=== PATIENT | female | born 1965 | race Caucasian/White ===

== ENCOUNTER 2018-07-07 20:14 | Emergency (ER) | payer BC ==
[~2018-07-07] VITALS: Ht 167.6 cm; Wt 93.4 kg
[~2018-07-07 20:14] MED LIST: ACET325T38 PO; ACHD5005 PO; AMOX-355 PO; ASP81TEC PO; CHOL500050 PO; CYAN10007 PO; FLUT16SP22 NS; GLIP10TA13 PO; IBUP-30 PO; LANS30CA PO; LEVO150T6 PO; LISI40TA PO; LORA10TA7 PO; LVT.05T PO; METF-380 PO; METF-397 PO; OMEG1CAP74 PO; PANT40TA3 PO; PREN1TAB86 PO; TIMO5DRO8 OP; VERA240C2 PO; VITA1CAP PO; VITA400C60 PO
--- OUTSIDE RECORDS SUMMARY | 2018-07-07 20:23 | XMS REPORT | Continuity of Care Document ---
Author Organization Unknown Address Unknown Allergies There is no data. Medications There is no data. Problems There is no data. Procedures There is no data. Results Test Result Range TSH - 05/21/18 09:47 TSH 0.50 mIU/L NRG Encounters ACCT No. Visit Date/Time Discharge Status Pt. Type Provider Facility Loc./Unit Complaint [id number] 05/21/2018 08:40:00 05/21/2018 23:59:59 [facility] Outpatient ELIJAH BAUTISTA [facility] [id number] 05/21/2018 08:40:00 Document Registration
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
--- NOTE | 2018-07-07 22:44 | NUR ---
C-COLLAR REMOVED BY THE DOCTOR.
[2018-07-07] MEDS ORDERED: KETOROLAC 30 MG/ML VIAL IM ONE (22:45)
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
[2018-07-07 23:11] VITALS: BP 120/81
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
== END 2018-07-07 23:13 | disposition home or self-care (01) ==
LOC: EDUNIT# 20:14 → ER FS 20:15
DX: I71.2 Thoracic aortic aneurysm, without rupture (principal); M54.2 Cervicalgia; J45.909 Unspecified asthma, uncomplicated; I10 Essential (primary) hypertension; G43.909 Migraine, unspecified, not intractable, without status migrainosus; K21.9 Gastro-esophageal reflux disease without esophagitis; K58.9 Irritable bowel syndrome, unspecified; E03.9 Hypothyroidism, unspecified; E11.9 Type 2 diabetes mellitus without complications; Z87.19 Personal history of other diseases of the digestive system; Z79.84 Long term (current) use of oral hypoglycemic drugs; Z90.710 Acquired absence of both cervix and uterus; Y04.2XXA Assault by strike against or bumped into by another person, initial encounter
CPT/HCPCS: 71045; 72125; 72128; 72131; 72170

== ENCOUNTER → 2018-11-15 | Outpatient (CLI) | payer BC ==
[~2018-11-15] MED LIST changes: +CATHETER FLUSH 10 ML SYR IV PRN; +HOLD METFORMIN - RECEIVED CONTRAST 20 ML VIAL IV SCH; +IOHEXOL 350 MG/ML 100 ML (OMNIPAQUE 350) VIAL IV ONE; +NS 100 ML (IVPB) BAG IV ONE
[2018-11-15 11:33] LABS: CREATININE SERUM 1.09 MG/DL (0.60-1.30)
--- NOTE | 2018-11-15 12:52 | Diagnostic Imaging Report ---
PROCEDURE: CT chest with contrast only. TECHNIQUE: Multiple contiguous axial images were obtained through the chest after administration of intravenous contrast. Auto Exposure Controls were utilized during the CT exam to meet ALARA standards for radiation dose reduction. INDICATION: Thoracic aortic aneurysm. FINDINGS: The CT thoracic and lumbar spine exam of 07/07/2018 noted a 4 cm aneurysm of the ascending aorta. On this exam, the aneurysm is again identified and does not appear to have changed significantly. The aneurysm measures 4.0 x 4.0 cm in maximum AP and transverse diameters. There is no sign of a dissection, and the thoracic aorta is of normal caliber. The abdominal aorta where visualized is also unremarkable for an aneurysm. The heart size is within normal limits. There are sparse coronary artery calcifications evident. The pulmonary arteries were not well opacified, but there is no definite defect to suggest a pulmonary embolus. There is no mediastinal or hilar adenopathy. The thyroid gland where visualized is unremarkable. The lungs are clear. There is no evidence for failure, pneumonia, or for a pleural effusion. There is no obvious breast mass. According to our records, the patient has not had a mammogram. If the patient has had a recent (within the last year) mammogram elsewhere, then no further imaging would be necessary. Otherwise, mammography would be recommended for further study. The sections through the upper abdomen show that the gallbladder is surgically absent. The liver is of lower density than usually seen. This does suggest fatty metamorphosis. The bone windows show no sign of a fracture or of a destructive lesion. IMPRESSION: 1. The borderline aneurysmal dilatation of the ascending aorta seen previously is again evident and no different. There is no acute abnormality of the thoracic aorta. 2. There is no acute cardiopulmonary abnormality noted. 3. There is no obvious breast mass. Recommendations as above. Dictated by: Dictated on workstation # [id number]
== END ==
LOC: RAD FS 10:19
PROVIDERS: ATTEND Nurse Practitioner Family
DX: I71.4 Abdominal aortic aneurysm, without rupture (principal)
CPT/HCPCS: 71260; 82565; 84520

== ENCOUNTER → 2020-02-03 | Outpatient (CLI) | payer BC ==
[~2020-02-03] MED LIST changes: -CATHETER FLUSH 10 ML SYR IV PRN; -PANT40TA3 PO; +PANT40TA52 PO
[2020-02-03 10:19] LABS: ALBUMIN 4.3 GM/DL (3.2-4.5); BILIRUBIN,TOTAL 0.5 MG/DL (0.1-1.0); CALCIUM 9.4 MG/DL (8.5-10.1); CREATININE SERUM 1.03 MG/DL (0.60-1.30); POTASSIUM 4.1 MMOL/L (3.6-5.0)
--- NOTE | 2020-02-03 11:31 | Diagnostic Imaging Report ---
PROCEDURE: CT angiography of the chest with contrast. TECHNIQUE: Multiple contiguous axial images were obtained through the chest after uneventful bolus administration of intravenous contrast. 3D reconstructed CTA MIP acquisitions were also performed. Auto Exposure Controls were utilized during the CT exam to meet ALARA standards for radiation dose reduction. INDICATION: Thoracic aortic aneurysm, follow-up. COMPARISON: Correlation is made with prior CT from 11/15/2018. FINDINGS: Ascending thoracic aortic measurements are 3.8 cm AP x 3.7 cm transverse compared with 4.0 cm x 4.0 cm on prior exam. The aortic arch and descending thoracic aorta are normal caliber. There is no dissection. No pericardial or pleural fluid is identified. No pulmonary infiltrates, nodules or masses are seen. Upper abdomen does show some nodularity to the left adrenal gland, stable at 15 mm. IMPRESSION: 1. Stable CT angiogram of the chest with stable ascending thoracic aorta when compared with prior CT from 11/15/2018. 2. Stable left adrenal nodule. Dictated by: Dictated on workstation # [id number]
== END ==
LOC: RAD FS 09:31
PROVIDERS: ATTEND Internal Medicine Cardiovascular Disease
DX: I71.4 Abdominal aortic aneurysm, without rupture (principal); I71.2 Thoracic aortic aneurysm, without rupture; I10 Essential (primary) hypertension; E78.2 Mixed hyperlipidemia; E11.9 Type 2 diabetes mellitus without complications; E27.8 Other specified disorders of adrenal gland
CPT/HCPCS: 36415; 71275; 80053

== ENCOUNTER → 2020-08-24 | Outpatient (CLI) | payer BC ==
[~2020-08-24] MED LIST changes: -HOLD METFORMIN - RECEIVED CONTRAST 20 ML VIAL IV SCH; -IOHEXOL 350 MG/ML 100 ML (OMNIPAQUE 350) VIAL IV ONE; -NS 100 ML (IVPB) BAG IV ONE
== END ==
LOC: CARD 09:00
PROVIDERS: ATTEND Internal Medicine Cardiovascular Disease
DX: I51.7 Cardiomegaly (principal); I71.2 Thoracic aortic aneurysm, without rupture
CPT/HCPCS: 93306

== ENCOUNTER 2021-01-29 06:30 | Outpatient (CLI) | payer BC ==
[~2021-01-29] VITALS: Ht 170.2 cm; Wt 87.7 kg
[2021-01-31] MEDS ORDERED: HYDR25TA4 PO (10:43)
[2021-01-31] MEDS ORDERED: VITA100T8 PO (10:43)
[2021-01-31] MEDS ORDERED: LEVO7.5T11 PO (10:43)
[2021-01-31] MEDS ORDERED: GABA-490 PO (10:43)
[2021-01-31] MEDS ORDERED: ASHW300C PO (10:43)
[2021-01-31] MEDS ORDERED: CALC-694 PO (10:43)
[2021-01-31] MEDS ORDERED: NFBIOT1000 PO (10:43)
[2021-01-31] MEDS ORDERED: GLIP5TAB13 PO (10:43)
[2021-01-31] MEDS ORDERED: ASPI-999 PO (10:43)
[2021-01-31] MEDS ORDERED: LEVO137T2 PO (10:43)
[2021-01-31] MEDS ORDERED: UBID100C17 PO (10:43)
[2021-01-31] MEDS ORDERED: ROSU10TA28 PO (10:43)
[2021-01-31] MEDS ORDERED: LORA10TA7 PO (10:43)
[2021-01-31] MEDS ORDERED: LISI20TA26 PO (10:43)
[2021-01-31] MEDS ORDERED: MAGN500T PO (10:46)
[2021-01-31] MEDS ORDERED: POTA99TA26 PO (10:46)
[2021-01-31] MEDS ORDERED: OMEG92TA PO (10:46)
[2021-01-31] MEDS ORDERED: GARL500C2 PO (10:46)
== END 2021-01-31 10:56 | disposition home or self-care (01) ==
LOC: PREOP 06:30
PROVIDERS: ATTEND Obstetrics & Gynecology
DX: Z01.818 Encounter for other preprocedural examination (principal)

== ENCOUNTER 2021-02-05 06:16 | Day surgery (SDC) | payer BC ==
[~2021-02-05] VITALS: Ht 170.2 cm; Wt 87.7 kg
[2021-02-05] VITALS (13 sets, daily range): BP systolic 96–133; BP diastolic 54–86
[~2021-02-05 06:16] MED LIST changes: +ASHW300C PO; +ASPI-999 PO; +CALC-694 PO; +GABA-490 PO; +GARL500C2 PO; +GLIP5TAB13 PO; +HYDR25TA4 PO; +LEVO137T2 PO; +LEVO7.5T11 PO; +LISI20TA26 PO; +MAGN500T PO; +NFBIOT1000 PO; +OMEG92TA PO; +POTA99TA26 PO; +ROSU10TA28 PO; +UBID100C17 PO; +VITA100T8 PO
[2021-02-05] MEDS ORDERED: ceFAZolin 2 GM IV Premixed 50 ML IV ONE (06:30)
[2021-02-05] MEDS: LACTATED RINGERS 1,000 ML IV PRN ×3 (06:57→18:00)
[2021-02-05] MEDS ORDERED: VASOPRESSIN INJECTION 20 UNIT/ML VIAL ONE (07:04)
[2021-02-05] MEDS ORDERED: NS (IVPB) 100 ML ONE (07:04)
[2021-02-05] MEDS ORDERED: ESTRADIOL VAGINAL CREAM 42.5 GM (ESTRACE) VG ONE (07:04)
[2021-02-05] MEDS ORDERED: SEVOFLURANE (ULTANE) 15 ML INHAL SOLN ONE ×3 (07:23→10:48)
[2021-02-05] MEDS ORDERED: LIDOCAINE PF 2% 5 ML (XYLOCAINE) VIAL ONE (07:23)
[2021-02-05] MEDS ORDERED: proPOfol 200 MG/20 ML (DIPRIVAN) VIAL IV ONE (07:23)
[2021-02-05] MEDS ORDERED: ONDANSETRON 4 MG/2 ML (SDV) Z0FRAN ONE (07:23)
[2021-02-05] MEDS ORDERED: fentaNYL INJ 100 MCG/2 ML AMP ONE (07:23)
[2021-02-05] MEDS ORDERED: MIDAZOLAM 2 MG/2 ML (VERSED) VIAL ONE (07:24)
--- NOTE | 2021-02-05 07:51 | History & Physical-Surgical ---
HPO-Surgical History of Present Illness Chief Complaint: cystocele Diagnosis/Surgical Indication: cystocele, mixed incontience Procedure: ant colporrahaphy, possible pubovaginal sling Date of Surgery: Feb 05, 2021 Weight (Pounds): 206 Weight (Ounces): 2.0 Height (Feet): 5 Height (Inches): 6.00 Allergies and Home Medications Allergies Coded Allergies: No Known Drug Allergies (Unverified , 01/04/16) Patient Home Medication List Home Medication List Reviewed: Yes Ashwagandha Root Extract (Ashwagandha Root Extract) Unknown Strength Capsule, 1,300 MG PO DAILY, (Reported) Entered as Reported by: DANNIE CHO on 01/31/21 1043 Aspirin (Aspirin) 81 Mg Tab.chew, 81 MG PO DAILY, (Reported) Entered as Reported by: DANNIE CHO on 01/31/21 1043 Biotin (Biotin) Unknown Strength Tablet, 1 TAB PO DAILY, (Reported) Entered as Reported by: DANNIE CHO on 01/31/21 1043 Calcium Carbonate/Vitamin D3 (Calcium 600 + Vit D Caplet) 1 Each Tablet, 1 EACH PO DAILY, (Reported) Entered as Reported by: DANNIE CHO on 01/31/21 1043 Gabapentin (Gabapentin) 400 Mg Capsule, 400 MG PO DAILY, (Reported) Entered as Reported by: DANNIE CHO on 01/31/21 1043 Garlic (Garlic) 500 Mg Capsule, 500 MG PO DAILY, (Reported) Entered as Reported by: DANNIE CHO on 01/31/21 1046 Glipizide (Glipizide) 5 Mg Tablet, 10 MG PO DAILY, (Reported) Entered as Reported by: DANNIE CHO on 01/31/21 1043 Hydrochlorothiazide (Hydrochlorothiazide) 25 Mg Tablet, 25 MG PO DAILY, (Reported) Entered as Reported by: DANNIE CHO on 01/31/21 1043 Levomefolate Calcium (Elfolate) 7.5 Mg Tablet, 7.5 MG PO DAILY, (Reported) Entered as Reported by: DANNIE CHO on 01/31/21 1043 Levothyroxine Sodium (Levothyroxine Sodium) 137 Mcg Tablet, 137 MCG PO DAILY, (Reported) Entered as Reported by: DANNIE CHO on 01/31/21 1043 Lisinopril (Lisinopril) 20 Mg Tablet, 20 MG PO DAILY, (Reported) Entered as Reported by: DANNIE CHO on 01/31/21 104 Loratadine (Loratadine) 10 Mg Tablet, 10 MG PO DAILY, (Reported) Entered as Reported by: DANNIE CHO on 01/31/21 104 Magnesium Oxide (Magnesium Oxide) 500 Mg Tablet, 1,000 MG PO DAILY, (Reported) Entered as Reported by: DANNIE CHO on 01/31/21 104 Metformin HCl (Metformin HCl) 500 Mg Tablet, 1,000 MG PO BID, (Reported) Entered as Reported by: CALI MELGAR on 01/04/16 164 [place] 3,6,9 Combination No.7 ([place]ha) 92 Mg Tab.chew, 1 TAB PO DAILY, (Reported) Entered as Reported by: DANNIE CHO on 01/31/21 104 Pantoprazole Sodium (Pantoprazole Sodium) 40 Mg Tablet.dr, 40 MG PO DAILY, (Reported) Entered as Reported by: CAIL MELGAR on 01/04/16 164 Potassium Gluconate (Potassium) 99 Mg Tablet, 99 MG PO DAILY, (Reported) Entered as Reported by: DANNIE CHO on 01/31/21 104 Rosuvastatin Calcium (Rosuvastatin Calcium) 10 Mg Tablet, 10 MG PO HS, (Reported) Entered as Reported by: DANNIE HCO on 01/31/21 1043 Ubidecarenone (Coq-10) 100 Mg Capsule, 100 MG PO DAILY, (Reported) Entered as Reported by: DANNIE CHO on 01/31/21 104 Vitamin B Complex (Vitamin B Complex) 1 Each Capsule, 1 EACH PO DAILY, (Reported) Entered as Reported by: CALI MELGAR on 01/04/16 164 Vitamin E Mixed (Vitamin E) 100 Unit Tablet, 100 UNIT PO DAILY, (Reported) Entered as Reported by: DANNIE CHO on 01/31/21 1043 Discontinued Medications Acetaminophen (Tylenol) 325 Mg Tablet, 650 MG PO DAILY, (Reported) Discontinued Reason: No Longer Taking Entered as Reported by: CALI MELGAR on 01/04/16 1641 Amoxicillin/Potassium Clav (Augmentin 500-125 Tablet) 1 Each Tablet, 1 EACH PO BID Discontinued Reason: No Longer Taking Prescribed by: SANDEE MORALEZ on 01/11/16 1508 Cholecalciferol (Vitamin D3) (Vitamin D) 5,000 Unit Capsule, 5,000 UNIT PO DAILY, (Reported) Discontinued Reason: No Longer Taking Entered as Reported by: CALI MELGAR on 01/04/16 1641 Glipizide (Glipizide) 10 Mg Tablet, 10 MG PO DAILY, (Reported) Discontinued Reason: Prescription changed Entered as Reported by: CALI MELGAR on 01/04/16 164 Hydrocodone Bit/Acetaminophen (Lortab 5 Mg Tablet) 1 Each Tablet, 1-2 EACH PO Q4H PRN for PAIN Discontinued Reason: No Longer Taking Prescribed by: SANDEE MORALEZ on 01/11/16 1508 Levothyroxine Sodium (Levothyroxine Sodium) 150 Mcg Tablet, 150 MCG PO DAILY, (Reported) Discontinued Reason: Prescription changed Entered as Reported by: CALI MELGAR on 01/04/16 1539 Lisinopril (Lisinopril) 40 Mg Tablet, 50 MG PO DAILY, (Reported) Discontinued Reason: Prescription changed Entered as Reported by: MARCUS SIERRA on 11/05/09 0806 Vit W-Ca,Fe,FA(<1 mg) ( Vitamins) 1 Each Tablet, 1 EACH PO DAILY, (Reported) Discontinued Reason: No Longer Taking Entered as Reported by: CALI MELGAR on 01/04/16 1641 Timolol Maleate (Timoptic) 5 Ml Drops, 1 DROP OP DAILY, (Reported) Discontinued Reason: No Longer Taking Entered as Reported by: CALI MELGAR on 01/04/16 1642 Vitamin E Acetate (Vitamin E) 400 Unit Capsule, 400 UNIT PO DAILY, (Reported) Discontinued Reason: Prescription changed Entered as Reported by: CALI MELGAR on 01/04/16 1641 Past Hvxyjka-Lhfaic-Otgtaz Hx Patient Social History Marrital Status: Number of Children: 4 Number of living children: 4 Employed/Student: employed Smoking Status: Never a Smoker Recent Hopitalizations: No Immunizations Up To Date Date of Influenza Vaccine: Dec 03, 2020 Seasonal Allergies Seasonal Allergies: Yes Surgeries Yes Bladder Surgery, Eye Surgery, Gallbladder, Hysterectomy, Tubal Ligation Respiratory Yes Cardiovascular Yes Aneurysm, Hypertension Neurological Yes Headaches /Migraines Reproductive System : No Hx : 4 Hx Para: 4 Hx Reproductive Disorders: Yes (RECTOCELE) Sexually Transmitted Disease: No HIV/AIDS: No [employer]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 Genitourinary Yes (cystocele) Gastrointestinal Yes Gastroesophageal Reflux, Chronic Constipation, Irritable Bowel Musculoskeletal Yes Fibromyalgia Endocrine History of Endocrine Disorders: Yes Endocrine Disorders: Hypothyroidsim, Diabetes, Non-Insulin dep HEENT History of HEENT Disorders: Yes (cataract removed ) Loss of Vision: Bilateral Hearing Impairment: Denies Cancer No Psychosocial History of Psychiatric Problem: No Integumentary History of Skin or Integumenta: No Blood Transfusions History of Blood Disorders: Yes (HX OF ANEMIA) Adverse Reaction to a Blood Tr: No (N/A) Reviewed Nursing Assessment Reviewed/Agree w Nursing PMH: Yes Family Medical History Significant Family History: Heart Disease, CVA, Diabetes, Hypertension Exam Vital Signs Vital Signs 02/05/21 06:25 Temp 36.0 Pulse 81 Resp 18 B/P (MAP) 126/77 (93) Pulse Ox 97 O2 Delivery Room Air Capillary Refill : General Appearance: Alert HEENT: Atraumatic Respiratory: Clear to Auscultation Cardiovascular: Regular Rate Assessment/Plan Assessment and Plan Cystocele and mixed incontinence Plan - plan anterior colporrhaphy with possible Sharonda plication on 02/05/2021 Risk of bleeding, infection, injury to bowel, bladder and ureter has been discussed with patient. She will be NPO after midnight. Will use prophylactic antibiotics and SCDs. Discussed the risk of bladder injury and post operative retention is great with history of previous surgery. Discussed that she may want to consider a pubovaginal sling but she says she does not want mesh. Will reconsider and discuss again preoperatively. Discussed she may have to self cath or wear a catheter home for a few days if in jury or retention. Discussed that ovary does not need removed in the setting of normal labs, no mass, etc. Admission Diagnosis Admission Status: Observation (23 hour) MICKI IVAN DO Feb 05, 2021 07:51
[2021-02-05] MEDS ORDERED: KETOROLAC 30 MG/ML VIAL ONE (10:46)
--- NOTE | 2021-02-05 10:50 | Operative Report ---
Operative Report Date of Procedure/Surgery Feb 05, 2021 Surgeon (s) MICKI IVAN DO Business Intelligence Manager (s): NA Post-Operative Diagnosis cystocele Procedure Performed anterior colporrhaphy Description of Procedure Anesthesia Type: General (LMA) Estimated blood loss (mL): minimal Specimen(s) collected/removed none Packing: vaginal with estrogen cream Description of the Procedure With informed consent the patient was taken to the operating room where general anesthesia was found to be adequate. She was prepped and draped in the usual sterile fashion in the dorsolithotomy position. A mayfield catheter was placed in the bladder. There was a 2nd degree laceration noted. A weighted speculum was placed in the vagina and the anterior vaginal epithelium was injected with dilute vasopressin and a midline incision was made with the scalpel. The vaginal epithelium was dissected off the pubovesical fascia laterally to the white line. I then plicated the anterior in the midline, reducing the cystocele with interrupted figure of eight stitches of 2-0 Vicryl. I then did a gricelda plication under the urethra. I then trimmed the excess vaginal epithelium and closed the incision with a running stitch of 2-0 Vicryl. I then packed the vagina with estrace cream and vaginal packing. The patient was awakened and taken to the recovery room in stable condition. Findings of the Procedure 2+ cystocele, small enterocele well supported urethra Allergies and Home Medications Allergies Coded Allergies: No Known Drug Allergies (Unverified , 01/04/16) Patient Home Medication List Home Medication List Reviewed: Yes Acetaminophen (Acetaminophen) 500 Mg Tablet, 1,000 MG PO Q8HR Prescribed by: MICKI IVAN on 02/06/21714 Aspirin (Aspirin EC) 325 Mg Tablet.dr, 325 MG PO HS, (Reported) Entered as Reported by: WES WHITFIELD on 02/05/21 1320 Last Action: Continued Benzocaine/Benzethon Cl (Dermoplast First Aid [place]) 78 Gm Aerosol, 78 GM TP PRN Prescribed by: MICKI IVAN on 02/06/21 07 Docusate Sodium (Colace) 100 Mg Capsule, 100 MG PO DAILY Prescribed by: MICKI IVAN on 02/06/21 0715 Dorzolamide HCl/Timolol Maleat (Cosopt Eye Drops) 10 Ml Drops, 1 DROP OS BID, (Reported) Entered as Reported by: WES WHITFIELD on 02/05/211319 Last Action: Continued Flaxseed Oil (Flaxseed Oil) 1,000 Mg Capsule, 1,000 MG PO DAILY, (Reported) Entered as Reported by: WES WHITFIELD on 02/05/211319 Last Action: Reviewed Gabapentin (Gabapentin) 400 Mg Capsule, 400 MG PO HS, (Reported) Entered as Reported by: DANNIE CHO on 01/31/21 104 Last Action: Continued Glipizide (Glipizide) 5 Mg Tablet, 5 MG PO BIDAC, (Reported) Entered as Reported by: DANNIE CHO on 01/31/211042 Last Action: Continued Guaifenesin (Guaifenesin) 400 Mg Tablet, 400 MG PO HS PRN for CONGESTION, (Repor clifton) Entered as Reported by: WES WHITFIELD on 02/05/211320 Last Action: Reviewed Hydrochlorothiazide (Hydrochlorothiazide) 25 Mg Tablet, 25 MG PO DAILY, (Reported) Entered as Reported by: DANNIE CHO on 01/31/21 104 Last Action: Continued Ibuprofen (Ibu) 600 Mg Tablet, 600 MG PO Q6HR Prescribed by: MICKI IVAN on 02/06/21 0715 Levomefolate Calcium (Elfolate) 7.5 Mg Tablet, 7.5 MG PO 1200, (Reported) Entered as Reported by: WES WHITFIELD on 02/05/211319 Last Action: Reviewed Levothyroxine Sodium (Levothyroxine Sodium) 125 Mcg Tablet, 125 MCG PO DAILY, (Reported) Entered as Reported by: WES WHITFIELD on 02/05/211319 Last Action: Continued Lisinopril (Lisinopril) 20 Mg Tablet, 20 MG PO HS, (Reported) Entered as Reported by: DANNIE CHO on 01/31/211042 Last Action: Continued Loratadine (Loratadine) 10 Mg Tablet, 10 MG PO DAILY, (Reported) Entered as Reported by: DANNIE CHO on 01/31/211042 Last Action: Continued Magnesium Oxide (Magnesium Oxide) 250 Mg Tablet, 250 MG PO BID, (Reported) Entered as Reported by: WES WHITFIELD on 02/05/211319 Last Action: Reviewed Metformin HCl (Metformin HCl) 500 Mg Tablet, 1,000 MG PO BID, (Reported) Entered as Reported by: CALI MELGAR on 01/04/161640 Last Action: Continued Multivitamin/Iron/Folic Acid (Multivitamin with Iron Tablet) 1 Each Tablet, 1 EACH PO DAILY, (Reported) Entered as Reported by: WES WHITFIELD on 02/05/211319 Last Action: Continued [place]-3S/Dha/Epa/Fish Oil (Fish Oil [place]-3 Softgel) 1 Each Capsule.dr, 2 EACH PO BID, (Reported) Entered as Reported by: WES WHITFIELD on 02/05/211319 Last Action: Reviewed Ondansetron (Ondansetron Odt) 4 Mg Tab.rapdis, 4 MG PO Q6H PRN for NAUSEA/VOMITING-1ST LINE, (Reported) Entered as Reported by: WES WHITFIELD on 02/05/211325 Last Action: Continued Oxycodone Hcl (Oxyir Tablet) 5 Mg Tab, 5 MG PO Q4HR PRN for PAIN-SEE DOSE INSTRUCTIONS Prescribed by: MICKI IVAN on 02/06/21 0716 Pantoprazole Sodium (Pantoprazole Sodium) 40 Mg Tablet.dr, 40 MG PO HS, (Reported) Entered as Reported by: CALI MELGAR on 01/04/161640 Last Action: Continued Potassium Gluconate (Potassium) 99 Mg Tablet, 99 MG PO DAILY, (Reported) Entered as Reported by: DANNIE CHO on 01/31/21 1046 Last Action: Reviewed Turmeric/Turmeric Root Extract (Turmeric 450-50 mg Capsule) Unknown Strength Capsule, Unknown Dose PO BID, (Reported) Entered as Reported by: WES WHITFIELD on 02/05/211319 Last Action: Reviewed [Ashwagandha] Unknown Strength CAKE, 2 EA PO 1200, (Reported) Entered as Reported by: WES WHITFIELD on 02/05/211319 Last Action: Reviewed [Cinnamon Bark] 1,000 CAP, 2,000 MG PO TIDWM, (Reported) Entered as Reported by: WES WHITFIELD on 02/05/211319 Last Action: Reviewed MICKI IVAN DO Feb 05, 2021 10:50
--- NOTE | 2021-02-05 10:58 | Anesthesia-General Post-Op ---
General Patient Condition Mental Status/LOC: Same as Preop Cardiovascular: Satisfactory Nausea/Vomiting: Absent Respiratory: Satisfactory Pain: Controlled Complications: Absent Post Op Complications Complications None Follow Up Care/Instructions Patient Instructions None needed. Anesthesia/Patient Condition Patient Condition Patient is doing well, no complaints, stable vital signs, no apparent adverse anesthesia problems. No complications reported per nursing. JENSEN ZUNIGA CRNA Feb 05, 2021 10:58
[2021-02-05] MEDS ORDERED: BENZOCAINE/MENTHOL (DERMOPLAST) 56 ML CAN TP PRN (11:00)
[2021-02-05] MEDS ORDERED: MEPERIDINE (DEMEROL) INJ 50 MG/ML IVP ONE (11:00)
[2021-02-05] MEDS ORDERED: morphine INJ 10 MG/ML 1ML (SYR OR VIAL) IVP ONE (11:00)
[2021-02-05] MEDS ORDERED: NALOXONE 0.4 MG/ML 1 ML (NARCAN) VIAL IV PRN (11:00)
[2021-02-05] MEDS ORDERED: PATIENT MAY USE OWN MEDS, ALL MC SCH (11:00)
[2021-02-05] MEDS ORDERED: ONDANSETRON 4 MG/2 ML (SDV) Z0FRAN IVP PRN (11:00)
[2021-02-05] MEDS ORDERED: morphine INJ 4 MG/ML 1 ML (VIAL/SYRINGE) IV PRN (11:00)
[2021-02-05] MEDS ORDERED: METOCLOPRAMIDE INJ 10 MG/2 ML (REGLAN) IV PRN (11:00)
[2021-02-05] MEDS: LACTATED RINGERS 1,000 ML IV SCH ×2 (11:42→20:11)
[2021-02-05] MEDS ORDERED: LEVO7.5T11 PO (13:20)
[2021-02-05] MEDS ORDERED: CINNAMON BARK PO (13:20)
[2021-02-05] MEDS ORDERED: LEVO125T6 PO (13:20)
[2021-02-05] MEDS ORDERED: OMEG-154 PO (13:20)
[2021-02-05] MEDS ORDERED: MULT-1076 PO (13:20)
[2021-02-05] MEDS ORDERED: MAGN250T35 PO (13:20)
[2021-02-05] MEDS ORDERED: TURM500C7 PO (13:20)
[2021-02-05] MEDS ORDERED: ASPI325T32 PO (13:20)
[2021-02-05] MEDS ORDERED: ASHWAGANDHA PO (13:20)
[2021-02-05] MEDS ORDERED: DORZ10DR22 OS (13:20)
[2021-02-05] MEDS ORDERED: FLAX10004 PO (13:20)
[2021-02-05] MEDS ORDERED: GUAI400T86 PO (13:21)
[2021-02-05] MEDS ORDERED: ONDA4TAB11 PO (13:26)
[2021-02-05] MEDS: ACETAMINOPHEN 500 MG TAB (TYLENOL) PO SCH ×2 (14:00→22:00)
[2021-02-05] MEDS ORDERED: ONDANSETRON 4 MG (ZOFRAN) ORAL DISSOLVE TAB PO PRN (14:15)
[2021-02-05] MEDS: KETOROLAC 30 MG/ML VIAL IV SCH ×2 (17:59→20:10)
[2021-02-05] MEDS: glipiZIDE 5 MG (GLUCOTROL) TAB PO SCH (18:02)
[2021-02-05] MEDS: DORZOLAMIDE/TIMOLOL (COSOPT) 2-0.68% 10 ML BTL OS SCH (18:04)
[2021-02-05] MEDS: metFORMIN 500 MG (GLUCOPHAGE) TAB PO SCH (20:02)
[2021-02-05] MEDS: DOCUSATE SODIUM 100 MG (COLACE) CAP PO SCH (20:09)
[2021-02-05] MEDS ORDERED: ASPIRIN E.C. 325 MG (ECOTRIN) TABLET PO SCH (21:00)
[2021-02-05] MEDS ORDERED: PANTOPRAZOLE 40 MG (PROTONIX) TAB PO SCH (21:00)
[2021-02-05] MEDS ORDERED: lisINopril 20 MG (PRINIVIL) TABLET PO SCH (21:00)
[2021-02-05] MEDS ORDERED: GABAPENTIN 400 MG (NEURONTIN) CAP PO SCH (21:00)
[2021-02-06 00:21] VITALS: BP 119/66
[2021-02-06] MEDS: LACTATED RINGERS 1,000 ML IV SCH ×2 (02:03→11:14)
[2021-02-06 05:00] VITALS: BP 136/77
[2021-02-06] MEDS: glipiZIDE 5 MG (GLUCOTROL) TAB PO SCH (05:05)
[2021-02-06] MEDS: ACETAMINOPHEN 500 MG TAB (TYLENOL) PO SCH (06:23)
[2021-02-06] MEDS: KETOROLAC 30 MG/ML VIAL IV SCH ×2 (06:23)
[2021-02-06] MEDS ORDERED: LEVOTHYROXINE 125 MCG (LEVOTHROID) TABLET PO SCH (06:30)
[2021-02-06] MEDS ORDERED: ACET-93 PO (07:15)
[2021-02-06] MEDS ORDERED: IBUP-844 PO (07:15)
[2021-02-06] MEDS ORDERED: DOCU-143 PO (07:15)
[2021-02-06] MEDS ORDERED: OXC5T PO (07:15)
--- NOTE | 2021-02-06 07:20 | Discharge Inst-Women's Service ---
Discharge Inst-Women's Serv Depart Medication/Instructions New, Converted or Re-Newed RX: Transmitted to Pharmacy Instructions expect light bleeding/spotting for 7-10 days may use sitz baths may use dermaplast spray Final Diagnosis cystocele enterocele diabetes hypertension Problems Reviewed?: Yes Consults/Follow Up Additional Follow Up: Yes (1-2 weeks with [facility] and 6 weeks Leo) Activity Activity: Activity as Tolerated Driving Instructions: No Driving for 1 Week NO SMOKING: NO SMOKING Nothing Inside Vagina: No Douching, No [employer] (until cleared by physicion), No Tampons Diet Discharge Diet: No Restrictions Symptoms to Report to : Swelling Increased, Bleeding Excessive, Pain Increased, Fever Over 101 Degrees F, Vaginal Bleeding Increase, Vaginal Discharge Foul For Any Problems or Questions: Contact Your Physician Skin/Wound Care Bathing Instructions: Shower (ok to do sitz baths) MICKI IVAN DO Feb 06, 2021 07:20
[2021-02-06] MEDS ORDERED: [UNRECOGNIZED DRUG - CODE] TP (07:21)
[2021-02-06] MEDS ORDERED: MULTIVIT W/MINERALS TAB (THERAGRAN M) PO SCH (08:00)
[2021-02-06 08:36] VITALS: BP 128/74
[2021-02-06] MEDS: metFORMIN 500 MG (GLUCOPHAGE) TAB PO SCH (08:47)
[2021-02-06] MEDS: DORZOLAMIDE/TIMOLOL (COSOPT) 2-0.68% 10 ML BTL OS SCH (08:48)
[2021-02-06] MEDS ORDERED: LORATADINE (CLARITIN) 10 MG TAB PO SCH (09:00)
[2021-02-06] MEDS: DOCUSATE SODIUM 100 MG (COLACE) CAP PO SCH (09:01)
[2021-02-06] MEDS ORDERED: CALCIUM CARBONATE 500 MG (TUMS) TAB.CHEW PO ONE (11:00)
[2021-02-06 11:38] VITALS: BP 123/68
[2021-02-06] MEDS ORDERED: IBUPROFEN 600 MG (MOTRIN) TAB PO SCH (12:00)
== END 2021-02-06 12:20 | disposition home or self-care (01) ==
LOC: SDC 06:16 → WS 12:09 → SDC 02-06 12:20
PROVIDERS: ATTEND Obstetrics & Gynecology
DX: N81.10 Cystocele, unspecified (principal); N39.46 Mixed incontinence; N81.5 Vaginal enterocele; K21.9 Gastro-esophageal reflux disease without esophagitis; E66.9 Obesity, unspecified; M79.7 Fibromyalgia; E11.22 Type 2 diabetes mellitus with diabetic chronic kidney disease; I12.9 Hypertensive chronic kidney disease with stage 1 through stage 4 chronic kidney disease, or unspecified chronic kidney disease; N18.30 Chronic kidney disease, stage 3 unspecified; E78.2 Mixed hyperlipidemia; E11.42 Type 2 diabetes mellitus with diabetic polyneuropathy; I71.2 Thoracic aortic aneurysm, without rupture; K59.09 Other constipation; E03.9 Hypothyroidism, unspecified; Z79.899 Other long term (current) drug therapy; Z79.82 Long term (current) use of aspirin; Z79.1 Long term (current) use of non-steroidal anti-inflammatories (NSAID); Z79.84 Long term (current) use of oral hypoglycemic drugs; Z68.30 Body mass index [BMI] 30.0-30.9, adult; Z98.51 Tubal ligation status
CPT/HCPCS: 82947; 87081; 94664

== ENCOUNTER → 2022-01-24 | Outpatient (CLI) | payer BC ==
[~2022-01-24] MED LIST changes: +ACET-93 PO; +ASHWAGANDHA PO; +ASPI325T32 PO; +CATHETER FLUSH 10 ML SYR IV PRN; +CINNAMON BARK PO; +DOCU-143 PO; +DORZ10DR22 OS; +FLAX10004 PO; +GUAI400T86 PO; +HOLD METFORMIN - RECEIVED CONTRAST 20 ML VIAL IV SCH; +IBUP-844 PO; +IOHEXOL 350 MG/ML 100 ML (OMNIPAQUE 350) VIAL IV ONE; +LEVO125T6 PO; +MAGN250T35 PO; +MULT-1076 PO; +NS 100 ML (IVPB) BAG IV ONE; +OMEG-154 PO; +ONDA4TAB11 PO; +OXC5T PO; +TURM500C7 PO; +[UNRECOGNIZED DRUG - CODE] TP
[2022-01-24 15:26] LABS: CREATININE SERUM 1.13 MG/DL (0.60-1.30); POTASSIUM 3.7 MMOL/L (3.6-5.0)
[2022-01-24 15:27] LABS: CALCIUM 9.2 MG/DL (8.5-10.1)
--- NOTE | 2022-01-24 17:06 | Diagnostic Imaging Report ---
EXAMINATION: CT angiography of the chest. TECHNIQUE: Contrast enhanced thin section helical images were obtained through the chest with intravenous contrast timed for the optimal opacification of the arterial structures per CTA protocol. Post-processing, reconstructions and interpretation of angiographic images of the vessels was performed. 3D MIP reconstructions were performed and reviewed. All CT scans use one or more of the following dose optimizing techniques: automated exposure control, MA and/or KvP adjustment based on a patient size and exam type, or iterative reconstruction. HISTORY: Aortic aneurysm COMPARISON: 02/03/2020 FINDINGS: Ascending aorta measures 3.8 x 3.7 cm, previously 3.8 x 3.7 cm. The root is normal in caliber. Arch is normal in caliber. Descending aorta is normal in caliber. No central pulmonary embolism. No dissection. There is no edema or pneumonia. No pleural effusion. No pneumothorax. No suspicious nodules. There is no axillary or supraclavicular lymphadenopathy. There is no mediastinal lymphadenopathy. Heart size is normal. There are no coronary artery calcifications. No pericardial effusion. Aorta is normal in caliber. Limited views of the upper abdomen show changes of cholecystectomy. There is an unchanged left adrenal nodule, likely benign given long-term stability. There are no suspicious osseus lesions. IMPRESSION: 1. Stable caliber of the ascending aorta measuring 3.8 x 3.7 cm. Dictated by: Dictated on workstation # [id number]
== END ==
LOC: RAD FS 14:16
PROVIDERS: ATTEND Internal Medicine Cardiovascular Disease
DX: I71.21 Aneurysm of the ascending aorta, without rupture (principal)
CPT/HCPCS: 36415; 71275; 80048; Q9967

== ENCOUNTER 2022-07-26 20:37 | Emergency (ER) | payer BC ==
[~2022-07-26] VITALS: Ht 170.2 cm; Wt 90.7 kg
[~2022-07-26 20:37] MED LIST changes: -CATHETER FLUSH 10 ML SYR IV PRN; -DORZ10DR22 OS; +DORZ10DR40 OS; -HOLD METFORMIN - RECEIVED CONTRAST 20 ML VIAL IV SCH; -IOHEXOL 350 MG/ML 100 ML (OMNIPAQUE 350) VIAL IV ONE; -NS 100 ML (IVPB) BAG IV ONE
[2022-07-26] MEDS ORDERED: NS IV 1000 ML 1,000 ML IV STA (20:55)
--- NOTE | 2022-07-26 20:59 | ED General ---
General Stated Complaint: LOW ENERGY|SWEATING|VOMITING|CHEST PAIN|SOB Source of Information: Patient, Family Exam Limitations: No Limitations History of Present Illness Date Seen by Provider: Jul 26, 2022 Time Seen by Provider: 20:43 Initial Comments 57-year-old female with past medical history most notable for diabetes and hypertension coming in with her spouse due to just not feeling well. She has been indoors all day at a family reunion. She started having intermittent headaches today which are not unusual for her, denies headache at this time. Started having chest pain roughly 3 hours ago which is mild, constant and associated with nonbloody nonbilious vomiting. The thinks she ate bad tacos. She denies any cardiac stents and denies any prior history of DVT or PE. Denies any recent surgery, no hemoptysis, diarrhea, dysuria, fever, focal weak ness or numbness, or any other concerns. Allergies and Home Medications Allergies Coded Allergies: No Known Drug Allergies (Unverified , 01/04/16) Patient Home Medication List Home Medication List Reviewed: Yes Acetaminophen (Acetaminophen) 500 Mg Tablet, 1,000 MG PO Q8HR Prescribed by: MICKI IVAN on 02/06/21 0715 Aspirin (Aspirin EC) 325 Mg Tablet.dr, 325 MG PO HS, (Reported) Entered as Reported by: WES WHITFIELD on 02/05/21 1320 Benzocaine/Benzethon Cl (Dermoplast First Aid [place]) 78 Gm Aerosol, 78 GM TP PRN Prescribed by: MICKI IVAN on 02/06/21 07 Docusate Sodium (Colace) 100 Mg Capsule, 100 MG PO DAILY Prescribed by: MICKI IVAN on 02/06/21 0715 Dorzolamide HCl/Timolol Maleat (Cosopt Eye Drops) 10 Ml Drops, 1 DROP OS BID, (Reported) Entered as Reported by: WES WHITFIELD on 02/05/21 1320 Flaxseed Oil (Flaxseed Oil) 1,000 Mg Capsule, 1,000 MG PO DAILY, (Reported) Entered as Reported by: WES WHITFIELD on 02/05/21 1320 Gabapentin (Gabapentin) 400 Mg Capsule, 400 MG PO HS, (Reported) Entered as Reported by: DANNIE CHO on 01/31/21 1043 Glipizide (Glipizide) 5 Mg Tablet, 5 MG PO BIDAC, (Reported) Entered as Reported by: DANNIE CHO on 01/31/21 1043 Guaifenesin (Guaifenesin) 400 Mg Tablet, 400 MG PO HS PRN for CONGESTION, ( Reported) Entered as Reported by: WES WHITFIELD on 02/05/21 1321 Hydrochlorothiazide (Hydrochlorothiazide) 25 Mg Tablet, 25 MG PO DAILY, (Reported) Entered as Reported by: DANNIE CHO on 01/31/21 1043 Ibuprofen (Ibu) 600 Mg Tablet, 600 MG PO Q6HR Prescribed by: MICKI IVAN on 02/06/21 0715 Levomefolate Calcium (Elfolate) 7.5 Mg Tablet, 7.5 MG PO 1200, (Reported) Entered as Reported by: WES WHITFIELD on 02/05/21 1320 Levothyroxine Sodium (Levothyroxine Sodium) 125 Mcg Tablet, 125 MCG PO DAILY, (Reported) Entered as Reported by: WES WHITFIELD on 02/05/21 1320 Lisinopril (Lisinopril) 20 Mg Tablet, 20 MG PO HS, (Reported) Entered as Reported by: DANNIE CHO on 01/31/21 1043 Loratadine (Loratadine) 10 Mg Tablet, 10 MG PO DAILY, (Reported) Entered as Reported by: DANNIE CHO on 01/31/21 1043 Magnesium Oxide (Magnesium Oxide) 250 Mg Tablet, 250 MG PO BID, (Reported) Entered as Reported by: WES WHITFIELD on 02/05/21 1320 Metformin HCl (Metformin HCl) 500 Mg Tablet, 1,000 MG PO BID, (Reported) Entered as Reported by: CALI MELGAR on 01/04/16 1641 Multivitamin/Iron/Folic Acid (Multivitamin with Iron Tablet) 1 Each Tablet, 1 EACH PO DAILY, (Reported) Entered as Reported by: WES WHITFIELD on 02/05/21 1320 [place]-3S/Dha/Epa/Fish Oil (Fish Oil [place]-3 Softgel) 1 Each Capsule.dr, 2 EACH PO BID, (Reported) Entered as Reported by: WES WHITFIELD on 02/05/21 1320 Ondansetron (Ondansetron Odt) 4 Mg Tab.rapdis, 4 MG PO Q6H PRN for NAUSEA/VOMITING-1ST LINE, (Reported) Entered as Reported by: WES WHITFIELD on 02/05/21 1326 Oxycodone Hcl (Oxyir Tablet) 5 Mg Tab, 5 MG PO Q4HR PRN for PAIN-SEE DOSE INSTRU CTIONS Prescribed by: MICKI IVAN on 02/06/21 0716 Pantoprazole Sodium (Pantoprazole Sodium) 40 Mg Tablet.dr, 40 MG PO HS, (Reported) Entered as Reported by: CALI MELGAR on 01/04/16 1641 Potassium Gluconate (Potassium) 99 Mg Tablet, 99 MG PO DAILY, (Reported) Entered as Reported by: DANNIE CHO on 01/31/21 1046 Turmeric/Turmeric Root Extract (Turmeric 450-50 mg Capsule) Unknown Strength Capsule, Unknown Dose PO BID, (Reported) Entered as Reported by: WES WHITFIELD on 02/05/21 1320 [Ashwagandha] Unknown Strength CAKE, 2 EA PO 1200, (Reported) Entered as Reported by: WES WHITFIELD on 02/05/21 1320 [Cinnamon Bark] 1,000 CAP, 2,000 MG PO TIDWM, (Reported) Entered as Reported by: WES WHITFIELD on 02/05/21 1320 Review of Systems Review of Systems Constitutional: No fever EENTM: no symptoms reported Respiratory: see HPI Cardiovascular: see HPI Gastrointestinal: see HPI Genitourinary: no symptoms reported Musculoskeletal: no symptoms reported Skin: no symptoms reported Psychiatric/Neurological: No Symptoms Reported Past Iohprgv-Grftze-Jujkmb Hx Patient Social History Substance use?: No Immunizations Up To Date First/Initial COVID19 Vaccinat: yes Second COVID19 Vaccination Phil: yes Third COVID19 Vaccination Date: yes Seasonal Allergies Seasonal Allergies: Yes Past Medical History Surgeries: Yes Bladder Surgery, Eye Surgery, Gallbladder, Hysterectomy, Tubal Ligation Respiratory: Yes Asthma Currently Using CPAP: No Currently Using BIPAP: No Cardiac: Yes Aneurysm, Hypertension Neurological: Yes Headaches /Migraines Reproductive Disorders: Yes (RECTOCELE) 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 Sexually Transmitted Disease: No HIV/AIDS: No Genitourinary: Yes (cystocele) Gastrointestinal: Yes Gastroesophageal Reflux, Chronic Constipation, Irritable Bowel Musculoskeletal: Yes Fibromyalgia Endocrine: Yes Hypothyroidsim, Diabetes, Non-Insulin dep HEENT: Yes (cataract removed ) Loss of Vision: Bilateral Hearing Impairment: Denies Cancer: No Psychosocial: No Integumentary: No Blood Disorders: Yes (HX OF ANEMIA) Adverse Reaction/Blood Tranf: No (N/A) Family Medical History Heart Disease, CVA, Diabetes, Hypertension Physical Exam Vital Signs Vital Signs - First Documented 07/26/22 20:42 Temp 36.5 Pulse 94 Resp 18 B/P (MAP) 124/76 (92) Pulse Ox 95 O2 Delivery Room Air Capillary Refill : Height, Weight, BMI Height: 5'6.00" Weight: 206lbs. 2.0oz. 93.147580kh; 30.27 BMI Method:Stated General Appearance: No Apparent Distress, WD/WN Eyes: Bilateral Eye Normal Inspection HEENT: PERRL/EOMI, Normal ENT Inspection, Pharynx Normal Neck: Full Range of Motion, Normal Inspection, Non Tender, Supple Respiratory: Chest Non Tender, Lungs Clear, Normal Breath Sounds, No Accessory Muscle Use, No Respiratory Distress Cardiovascular: Regular Rate, Rhythm, No Edema, Normal Peripheral Pulses Gastrointestinal: Normal Bowel Sounds, Non Tender, Soft; No Distended, No Guarding Back: Normal Inspection, No CVA Tenderness, No Vertebral Tenderness Extremity: Normal Capillary Refill, Normal Inspection, Normal Range of Motion, Non Tender, No Calf Tenderness, No Pedal Edema Neurologic/Psychiatric: Alert, Oriented x3, No Motor/Sensory Deficits Skin: Normal Color, Warm/Dry Progress/Results/Core Measures Suspected Sepsis SIRS Temperature: Pulse: Respiratory Rate: Laboratory Tests 07/26/22 20:55: White Blood Count 9.7 Blood Pressure / Mean: Laboratory Tests 07/26/22 20:55: Creatinine 1.17, INR Comment 0.9, Platelet Count 264, Total Bilirubin 0.4 Results/Orders Lab Results Laboratory Tests Test 07/26/22 20:55 Range/Units White Blood Count 9.7 4.3-11.0 10^3/uL Red Blood Count 5.60 H 3.80-5.11 10^6/uL Hemoglobin 14.7 11.5-16.0 g/dL Hematocrit 46 35-52 % Mean Corpuscular Volume 81 80-99 fL Mean Corpuscular Hemoglobin 26 25-34 pg Mean Corpuscular Hemoglobin Concent 32 32-36 g/dL Red Cell Distribution Width 15.2 H 10.0-14.5 % Platelet Count 264 130-400 10^3/uL Mean Platelet Volume 10.4 9.0-12.2 fL Immature Granulocyte % (Auto) 0 % Neutrophils (%) (Auto) 60 42-75 % Lymphocytes (%) (Auto) 30 12-44 % Monocytes (%) (Auto) 7 0-12 % Eosinophils (%) (Auto) 2 0-10 % Basophils (%) (Auto) 1 0-10 % Neutrophils # (Auto) 5.9 1.8-7.8 10^3/uL Lymphocytes # (Auto) 2.9 1.0-4.0 10^3/uL Monocytes # (Auto) 0.7 0.0-1.0 10^3/uL Eosinophils # (Auto) 0.2 0.0-0.3 10^3/uL Basophils # (Auto) 0.1 0.0-0.1 10^3/uL Immature Granulocyte # (Auto) 0.0 0.0-0.1 10^3/uL Prothrombin Time 12.2 12.2-14.7 SEC INR Comment 0.9 0.8-1.4 Activated Partial Thromboplast Time 24 24-35 SEC D-Dimer 0.22 0.00-0.49 UG/ML Sodium Level 142 135-145 MMOL/L Potassium Level 3.8 3.6-5.0 MMOL/L Chloride Level 103 98-107 MMOL/L Carbon Dioxide Level 22 21-32 MMOL/L Anion Gap 17 H 5-14 MMOL/L Blood Urea Nitrogen 32 H 7-18 MG/DL Creatinine 1.17 0.60-1.30 MG/DL Estimat Glomerular Filtration Rate 55 BUN/Creatinine Ratio 27 Glucose Level 208 H 70-105 MG/DL Calcium Level 9.8 8.5-10.1 MG/DL Corrected Calcium 8.5-10.1 MG/DL Magnesium Level 2.2 1.6-2.4 MG/DL Total Bilirubin 0.4 0.1-1.0 MG/DL Aspartate Amino Transf (AST/SGOT) 25 5-34 U/L Alanine Aminotransferase (ALT/SGPT) 26 0-55 U/L Alkaline Phosphatase 80 40-136 U/L Troponin I < 0.30 <0.30 NG/ML Pro-B-Type Natriuretic Peptide < 36.0 <125.0 PG/ML Total Protein 7.9 6.4-8.2 GM/DL Albumin 4.7 H 3.2-4.5 GM/DL Serum Alcohol < 10 <10 MG/DL My Orders Orders - GIUSEPPE CRAMER MD Cbc With Automated Diff (07/26/22 20:55) Magnesium (07/26/22 20:55) Chest 1 View Ap/Pa Only (07/26/22 20:55) Ekg Tracing (07/26/22 20:55) Comprehensive Metabolic Panel (07/26/22 20:55) Protime With Inr (07/26/22 20:55) Partial Thromboplastin Time (07/26/22 20:55) O2 (07/26/22 20:55) Monitor-Rhythm Ecg Trace Only (07/26/22 20:55) Aspirin Chewable Tablet (Baby Aspirin Ch (07/26/22 21:00) Ed Iv/Invasive Line Start (07/26/22 20:55) Fibrin Degradation Products (07/26/22 20:55) Troponin I Fs (07/26/22 20:55) Probnp Fs (07/26/22 20:55) Ns Iv 1000 Ml (Sodium Chloride 0.9%) (07/26/22 20:55) Ondansetron Injection (Zofran Injectio (07/26/22 21:00) Prochlorperazine Injection (Compazine In (07/26/22 21:00) Alcohol (07/26/22 20:59) Drug Screen Stat (Urine) (07/26/22 20:59) Medications Given in ED Current Medications Medications Dose Ordered Sig/Sohail Route Start Time Stop Time Status Last Admin Dose Admin Aspirin 324 mg ONCE ONCE PO 07/26/22 21:00 07/26/22 21:01 DC 07/26/22 21:12 324 MG Ondansetron HCl 4 mg ONCE ONCE IVP 07/26/22 21:00 07/26/22 21:01 DC 07/26/22 21:12 4 MG Prochlorperazine Edisylate 5 mg ONCE ONCE IV 07/26/22 21:00 07/26/22 21:01 DC 07/26/22 21:12 5 MG Vital Signs/I&O 6/10/23 20:42 Temp 36.5 Pulse 94 Resp 18 B/P (MAP) 124/76 (92) Pulse Ox 95 O2 Delivery Room Air Capillary Refill : Progress Note : Progress Note 57-year-old female coming in due to vague symptoms. Most notable symptoms include chest pain. She states its been going on for many hours. ABCs were intact and vitals were stable on presentation. EKG with no acute ischemic changes on my interpretation. Chest x-ray with no obvious pneumothorax, no opacities, normal cardiac silhouette on my interpretation. An IV was placed and basic labs were obtained including cardiac biomarkers. Her creatinine is normal, white blood cell count unremarkable, troponin negative, BNP normal, and D-dimer negative. Given the nonacute EKG, negative troponin, and pain has been going on for hours prior to presentation, ACS is very unlikely. Additionally, she is not tachycardic, not hypoxic, and otherwise low risk for PE. Given that as well as a negative D-dimer, a PE is sufficiently ruled out. On arrival she was given aspirin as well as IV fluids and Zofran because she was nauseous. For the intermittent headaches she was given Compazine. She states she was actually headache free on arrival here, and the headache was not as bad as her typical ones. On reassessment she was feeling completely better. She states that she believes she had a "fibromyalgia attack". She states these happen every once in a while, and they get better when her pain gets better controlled. I am unclear what this clinically means, however, she does not appear to have any life- threatening concerns at this time. She was then discharged home in stable condi tion with strict return precautions. ECG Initial ECG Impression Date: Jul 26, 2022 Initial ECG Impression Time: 20:53 Initial ECG Rate: 98 Initial ECG Rhythm: Normal Sinus Comment Narrow QRS, normal axis, no significant ST changes or T wave abnormalities Diagnostic Imaging Diagonstic Imaging: Xray (chest) Comments NAME: SURY OCONNELLHAI oMise [facility] REC#: [id number] PT STATUS: REG ER : 1965 PHYSICIAN: GIUSEPPE CRAMER MD ADMIT DATE: 07/26/22/ER FS Draft Date of Exam:07/26/22 CHEST 1 VIEW AP/PA ONLY CLINICAL INDICATIONS: Patient with chest pain. EXAM: Portable chest x-ray upright view. COMPARISON: Chest x-ray dated 07/07/2018. FINDINGS: Lungs/pleura: Lungs are clear. There is no pneumothorax. There is no pleural effusion. Mediastinum: Unremarkable. Pulmonary vasculature: Unremarkable. Heart: Upper limits of normal heart size for portable projection is seen. Bones/extrathoracic soft tissue: Unremarkable. IMPRESSION: There is no radiographic evidence of acute cardiopulmonary process. Dictated on workstation # [id number] Dict: 07/26/222121 Trans: 07/26/222126 CV [id number] Interpreted by: DIONNA TAVERA MD Electronically signed by: Departure Impression Primary Impression: Chest pain Qualified Codes: R07.82 - Intercostal pain Disposition: 01 HOME, SELF-CARE Condition: Stable Departure-Patient Inst. Decision time for Depature: 22:05 Referrals: ISH CASTILLO APRN (PCP) Primary Care Physician [facility] (Family) Primary Care Physician Patient Instructions: Chest Pain That Is Not Caused by the Heart (DC) Add. Discharge Instructions: We are not seeing any evidence of anything life-threatening at this time. Please follow-up with your regular doctor soon, especially if you are not feeling back to normal. GIUSEPPE CRAMER MD Jul 26, 2022 20:59
[2022-07-26] MEDS ORDERED: ONDANSETRON 4 MG/2 ML (SDV) Z0FRAN IVP ONE (21:00)
[2022-07-26] MEDS ORDERED: PROCHLORPERAZINE 10 MG/2ML INJ (COMPAZINE) IV ONE (21:00)
[2022-07-26] MEDS ORDERED: ASPIRIN 81 MG CHEW (CHILDREN'S ASA) PO ONE (21:00)
[2022-07-26 21:14] LABS: BASOPHILS # (AUTO) 0.1 10^3/uL (0.0-0.1); BASOPHILS % (AUTO) 1 % (0-10); EOSINOPHILS # (AUTO) 0.2 10^3/uL (0.0-0.3); EOSINOPHILS % (AUTO) 2 % (0-10); HEMATOCRIT 46 % (35-52); HEMOGLOBIN 14.7 g/dL (11.5-16.0); LYMPHOCYTES # (AUTO) 2.9 10^3/uL (1.0-4.0); LYMPHOCYTES % (AUTO) 30 % (12-44); MEAN CORPUSCULAR HEMOGLOBIN 26 pg (25-34); MEAN CORPUSCULAR HGB CONC 32 g/dL (32-36); MEAN CORPUSCULAR VOLUME 81 fL (80-99); MEAN PLATELET VOLUME 10.4 fL (9.0-12.2); MONOCYTES # (AUTO) 0.7 10^3/uL (0.0-1.0); MONOCYTES % (AUTO) 7 % (0-12); NEUTROPHILS # (AUTO) 5.9 10^3/uL (1.8-7.8); NEUTROPHILS % (AUTO) 60 % (42-75); PLATELET COUNT 264 10^3/uL (130-400); WHITE BLOOD COUNT 9.7 10^3/uL (4.3-11.0)
--- NOTE | 2022-07-26 21:27 | Diagnostic Imaging Report ---
CLINICAL INDICATIONS: Patient with chest pain. EXAM: Portable chest x-ray upright view. COMPARISON: Chest x-ray dated 07/07/2018. FINDINGS: Lungs/pleura: Lungs are clear. There is no pneumothorax. There is no pleural effusion. Mediastinum: Unremarkable. Pulmonary vasculature: Unremarkable. Heart: Upper limits of normal heart size for portable projection is seen. Bones/extrathoracic soft tissue: Unremarkable. IMPRESSION: There is no radiographic evidence of acute cardiopulmonary process. Dictated by: Dictated on workstation # [id number]
[2022-07-26 21:33] LABS: CARBON DIOXIDE 22 MMOL/L (21-32); CHLORIDE 103 MMOL/L (98-107); INR 0.9 (0.8-1.4); POTASSIUM 3.8 MMOL/L (3.6-5.0); PROTHROMBIN TIME PATIENT 12.2 SEC (12.2-14.7); SODIUM 142 MMOL/L (135-145)
[2022-07-26 21:34] LABS: ALANINE AMINOTRANSFERASE 26 U/L (0-55); ALBUMIN 4.7 GM/DL (3.2-4.5); ALKALINE PHOSPHATASE 80 U/L (40-136); BILIRUBIN,TOTAL 0.4 MG/DL (0.1-1.0); BUN/CREATININE RATIO 27; CALCIUM 9.8 MG/DL (8.5-10.1); CREATININE SERUM 1.17 MG/DL (0.60-1.30); GFR ESTIMATED 55; GLUCOSE 208 MG/DL (70-105); MAGNESIUM 2.2 MG/DL (1.6-2.4); TOTAL PROTEIN 7.9 GM/DL (6.4-8.2)
[2022-07-26 21:40] LABS: FIBRIN DEGRADATION PRODUCTS 0.22 UG/ML (0.00-0.49)
[2022-07-26 22:06] VITALS: BP 117/68
== END 2022-07-26 22:06 | disposition home or self-care (01) ==
LOC: EDUNIT# 20:37 → ER FS 20:39
DX: R07.9 Chest pain, unspecified (principal); R11.2 Nausea with vomiting, unspecified; R51.9 Headache, unspecified
CPT/HCPCS: 36415; 71045; 80053; 83735; 83880; 84484; 85025; 85379; 85610; 85730; 93005; 93041; 99284; G0480; 80320